=== PATIENT | male | born 1985 | race Caucasian/White ===

== ENCOUNTER 2024-04-28 23:46 | Emergency (ER) | payer BC ==
--- OUTSIDE RECORDS SUMMARY | 2024-04-28 23:48 | XMS REPORT | Continuity of Care Document ---
Author Name Unknown Address [address] [place] [address] [facility] Address [address] [place] [address] Care Team Providers Care Still Operator Brandy Name Role Phone MACI VEGA Primary Care Physician CHIVO Loo Attending Clinician Unavailable CARMELO OLEA Attending Clinician UnavailCarmelo Storm NP Attending Clinician [phone] Campaigns, Generic Provider Attending Clinician Unavailable Lilliam Ga MD Attending Clinician [phone] LILLIAM GA Attending Clinician UnavailLILLIAM Townsend Attending Clinician UnavailMACI Glover Attending Clinician Unavailab MACI Whittington Attending Clinician UnavailMaci Her MD Attending Clinician [phone], [facility] Attending Clinician Unavailable Doctor Unassigned, [place] Attending Clinician U CARMELO Greco Admitting Clinician MACI Peters Admitting Clinician Emeterio dela cruz Payers Payer Name Policy Type Policy Number Effective Date Expirati on Date Source [facility] [id number] 2023 00:00:00 Problems Condition Name Condition Details Condition Category Status Onset Date Resolution Date Last Treatment Date Treating Clinician Comments Source Chest pain, unspecifie d type Chest pain, unspecifie d type Disease Active 2023-05 00:00: 00 [facility] Allergies, Adverse Reactions, Alerts Allergy Name Allergy Type Status Severity Reaction(s) Onset Date Inactive Date Treating Clinician Comments Source NO KNOWN ALLERGIE S Drug Class Active [facility] Social History Social Habit Start Date Stop Date Quantity Comments Source History of tobacco use Cigarette Smoker [facility] Alcoholic beverage intake 2024-04-14 00:00:00 2024-04-14 00:00:00 Current drinker of alcohol (finding) [facility] History of Social function 2023-12-14 00:00:00 2023-12-14 00:00:00 [facility] Alcohol intake 2023-06-15 00:00:00 2023-06-15 00:00:00 Current drinker of alcohol (finding) [facility] Tobacco use and exposure 2023-03-15 00:00:00 2023-03-15 00:00:00 User of smokeless tobacco [facility] Alcohol Comment 2023-03-15 00:00:00 2023-03-15 00:00:00 occasionally [facility] Sex assigned at 1985 00:00:00 1985 00:00:00 [facility] Smoking Status Start Date Stop Date Source Smokes tobacco daily 2023-03-15 00:00:00 [facility] Medications Ordered Medication Name Filled Medication Name Start Date Stop Date Current Medication? Ordering Clinician Indication Dosage Frequency Signature (SIG) Comments Components Source aspirin tablet 325 mg 2023-05 16:45: 00 04-14 17:09 :00 No 325mg 325 mg, Oral, ONCE, 1 dose, On 04/14/24 at 1045, STAT [facility] triamcinolo ne acetonide (KENALOG) injection 40 mg 12-28 22:45: 00 12-28 21:31 :00 No [id number] 40mg 40 mg, Intramuscu lar, ONCE, 1 dose, On Lynn 12/29/23 at 1745, Routine [facility] Vital Signs Vital Name Observation Time Observation Value Comments S trae Systolic blood pressure 2024-04-14 21:00:00 144 mm[Hg] [facility] Diastolic blood pressure 2024-04-14 21:00:00 78 mm[Hg] [facility] Heart rate 2024-04-14 21:00:00 93 /min [facility] Respiratory rate 2024-04-14 21:00:00 17 /min [facility] Oxygen saturation in Arterial blood by Pulse oximetry 2024-04-14 21:00:00 98 /min [facility] Body temperature 2024-04-14 16:39:00 36.78 Karen [facility] Body height 2024-04-14 16:39:00 195.6 cm [facility] Body weight 2024-04-14 16:39:00 154.223 kg [facility] BMI 2024-04-14 16:39:00 40.32 kg/m2 [facility] Body height 2023-12-29 21:23:00 195.6 cm [facility] Body weight 2023-12-29 21:23:00 153.905 kg [facility] BMI 2023-12-29 21:23:00 40.24 kg/m2 [facility] Systolic blood pressure 2023-12-14 20:15:00 132 mm[Hg] [facility] Diastolic blood pressure 2023-12-14 20:15:00 69 mm[Hg] [facility] Heart rate 2023-12-14 20:15:00 85 /min [facility] Body temperature 2023-12-14 20:15:00 36.5 Karen [facility] Body height 2023-12-14 20:15:00 195.6 cm [facility] Body weight 2023-12-14 20:15:00 155.266 kg [facility] BMI 2023-12-14 20:15:00 40.59 kg/m2 [facility] Oxygen saturation in Arterial blood by Pulse oximetry 2023-12-14 20:15:00 97 /min [facility] Systolic blood pressure 2023-06-15 21:09:00 138 mm[Hg] [facility] Diastolic blood pressure 2023-06-15 21:09:00 80 mm[Hg] [facility] Heart rate 2023-06-15 21:09:00 88 /min [facility] Respiratory rate 2023-06-15 21:09:00 18 /min [facility] Body height 2023-06-15 21:09:00 195.6 cm [facility] Body weight 2023-06-15 21:09:00 154.858 kg [facility] BMI 2023-06-15 21:09:00 40.48 kg/m2 [facility] Oxygen saturation in Arterial blood by Pulse oximetry 2023-06-15 21:09:00 100 /min [facility] Systolic blood pressure 2023-03-15 21:14:00 129 mm[Hg] [facility] Diastolic blood pressure 2023-03-15 21:14:00 84 mm[Hg] [facility] Heart rate 2023-03-15 21:14:00 84 /min [facility] Body temperature 2023-03-15 21:14:00 36.28 Karen [facility] Respiratory rate 2023-03-15 21:14:00 18 /min [facility] Body height 2023-03-15 21:14:00 195.6 cm [facility] Body weight 2023-03-15 21:14:00 157.126 kg [facility] BMI 2023-03-15 21:14:00 41.08 kg/m2 [facility] Oxygen saturation in Arterial blood by Pulse oximetry 2023-03-15 21:14:00 98 /min [facility] Procedures Procedure Date / Time Performed Performing Clinicia n Source TROPONIN I 2024-04-14 19:38:00 [facility] 2024-04-14 17:02:28 [facility] LIPASE 2024-04-14 16:54:00 Carmelo Olea Un [facility] TROPONIN I 2024-04-14 16:54:00 Carmelo Olea Un [facility] COMP. METABOLIC PANEL ([id number]) 2024-04-14 16:54:00 Carmelo Olea [facility] CBC WITH DIFF 2024-04-14 16:54:00 Carmelo [facility] N-TERMINAL PRO-BNP 2024-04-14 16:54:00 Rodolfo Olea ril [facility] XR LUMBAR SPINE 3 VW 2023-06-15 22:04:24 Maci Vega [facility] ASSIGNMENT OF BENEFITS 2023-03-18 15:37:17 Docto r Unassigned, [place] [facility] Encounters Start Date/Time End Date/Time Encounter Type Admission Type Attending [facility] Care Facility Care Department Encounter ID Source 2024-05-03 15:20:00 2024-05-03 15:20:00 Outpatient R CHIVO [facility] [id number] [facility] 2024-04-14 10:41:00 2024-04-14 15:38:00 Emergency X CARMELO OLEA [facility] ERT [id number] [facility] 2024-04-14 10:41:00 2024-04-14 15:38:00 Emergency Carmelo Olea [facility] .840.114 350.1.13.10 4.2.7.2.686 [id number] [facility] 2024-01-20 00:00:00 2024-01-20 10:15:00 Letter (Out) Campaigns, Generic Provider Campaigns, Generic Provider [facility] [place] ..840.114 350.1.13.10 4.2.7.2.686 [id number] [facility] 2024-01-13 15:20:00 2024-01-13 15:20:00 Outpatient R CHIVO [facility] [id number] [facility] 2023-12-29 16:00:00 2023-12-29 16:43:07 Office Visit Lilliam Ga [facility] 1.2.840.114 350.1.13.10 4.2.7.2.686 [id number] [facility] 2023-12-29 16:00:00 2023-12-29 16:43:07 Outpatient R LILLIAM GA [facility] [id number] [facility] 2023-12-19 19:11:38 2023-12-19 23:59:00 Outpatient R OBI-KISHOREMACI Aranda OBI[facility]KISHORE , [facility] [id number] [facility] 2023-12-19 19:11:38 2023-12-19 23:59:00 Hospital Encounter Obi-Kishore , Maci [facility] 1.2840.114 350.1.13.10 4.2.7.2.686 [id number] [facility] 2023-12-15 00:00:00 2023-12-15 07:54:46 Telephone Obi-Kishore , [facility] BUILDING 1.2840.114 350.1.13.10 4.2.7.2.686 [id number] [facility] 2023-12-14 15:20:00 2023-12-14 15:33:19 Office Visit Obi-Kishore [facility] BUILDING 1.2.840.114 350.1.13.10 4.2.7.2.686 [id number] [facility] 2023-12-14 15:20:00 2023-12-14 15:33:19 Outpatient R OBI-KISHORE MACI OBI-KISHORE [facility] [id number] [facility] 2023-06-15 16:00:00 2023-06-15 23:59:00 Hospital Encounter Maci Vega [facility] 1.2840.114 350.1.13.10 4.2.7.2.686 [id number] [facility] 2023-06-15 15:20:00 2023-06-15 15:27:24 Outpatient R OBI-KISHOREMACI [facility] [id number] 2023-06-15 15:20:00 2023-06-15 15:27:24 [facility] 1.284.114 350.1.13.10 4.2.7.2.686 [id number] [facility] 2023-03-18 09:45:00 2023-03-18 10:00:00 [facility] Visit 2, Ad[facility] Shirin [facility] 1.2.840.114 350.1.13.10 4.2.7.2.686 [id number] [facility] 2023-03-18 09:45:00 2023-03-18 09:54:21 Outpatient R OBI-KISHORE MACI OBI-KISHORE [facility] [id number] [facility] 2023-03-18 00:00:00 2023-03-18 00:00:00 Orders Only Doctor Unassigned, [place] [facility] 1.284.114 350.1.13.10 4.2.7.2.686 [id number] [facility] 2023-03-15 15:00:00 2023-03-15 16:08:54 Office Visit Maci Vega [facility] 1.2.840.114 350.1.13.10 4.2.7.2.686 [id number] [facility] 2023-03-15 15:00:00 2023-03-15 16:08:54 Outpatient R MACI VEGA [facility] [id number] [facility] Results Test Description Test Time Test Comments Results Result Co mments Source [facility] 19:09:44* Test Item Value Reference Range Interpretation Comme nts LIPASE (test code = 4013714866) 118 U/L 0-220 Lab Interpretation (test cod e = 81515-9) Normal [facility] 1 [id number] 18:01:54EXAM: XR CHEST 1 VW HISTORY: 39 years-old Male; CHEST PAIN COMPARISON: None FINDINGS: Lungs: The lung volumes are mildly underinflated. No focal opacities arepresent. No pleural abnormalities are detected. Heart/Mediastinum: The cardiomediastinal silhouette appears normal. Bones and soft tissues: No acute osseous findings are detected.[facility] [id number] 17:29:40* Test Item Value Reference Range Interpretation Comme nts TROPONIN I (test code = 2922073918) 0.001 ng/mL <=0.034 RADHA (test code = RADHA) Reference (Normal) Range (defined by the 99th percentile reference limit): <= 0.034 ng/mL Note: Cardiac troponin begins to rise 3-4 hours after the onset of ischemia. Repeat in 4-6 hours if the sample was drawn within 3-4 hours of the onset of the symptom and found normal. Diagnosis of myocardial injury is made with acute changes in cTn concentrations with at least one serial sample above the 99th percentile upper reference limit (URL), taken together with the patient's clinical presentation. Biotin has been reported to cause a negative bias, interpret results relative to patient's use of biotin. Lab Interpretation (test code = 72130-5) Normal [facility] [id number] 17:27:18* Test Item Value Reference Range Interpretation Comme nts NT-proBNP (test code = 68346-0) 56 pg/mL <=125 Lab Interpretation (test cod e = 41935-3) Normal [facility] METABOLIC PANEL ([id number])2024-04-14 17:17:56* Test Item Value Reference Range Interpretation Comme nts NA (test code = 8173209582) 140 mmol/L 135-145 K (test code = 8025826045) 3.5 mmol/L 3.5-5.0 CL (test code = 3774161656) 104 mmol/L 98-108 CO2 TOTAL (test code = 6673606580) 26 mmol/L 23-31 AGAP (test code = 7654311281) 10 2-16 BUN (test code = 9373946665) 11 mg/dL 7-23 GLUCOSE (test code = 2583444438) 104 mg/dL 70-110 CREATININE (test code = 2160-0) 0.68 mg/dL 0.60-1.25 TOTAL BILI (test code = 7469833849) 0.4 mg/dL 0.1-1.1 CALCIUM (test code = 8573887298) 9.6 mg/dL 8.6-10.6 T PROTEIN (test code = 0174156984) 8.1 g/dL 6.3-8.2 ALBUMIN (test code = 0458551869) 4.9 g/dL 3.5-5.0 ALK PHOS (test code = 5418518386) 45 U/L 34-122 ALTv (test code = 1742-6) 47 U/L 5-50 AST(SGOT) (test code = 9805333696) 30 U/L 13-40 eGFR (test code = 36071-6) 120.5 mL/min/1.73m2 CKD-EPI eGFR (20 21). Assuming creatinine has been stable day-to-day for at least three months, the eGFR indicates Category G1 (>= 90 mL/min/1.73 m2) [facility] WITH [id number] 17:08:36* Test Item Value Reference Range Interpretation Comme nts WBC (test code = 6690-2) 8.51 4.20-10.70 RBC (test code = 789-8) 5.05 4.26-5.52 HGB (test code = 718-7) 15.8 g/dL 12.2-16.4 HCT (test code = 4544-3) 46.5 % 38.4-49.3 MCV (test code = 787-2) 92.1 fL 81.7-95.6 MCH (test code = 785-6) 31.3 pg 26.1-32.7 MCHC (test code = 786-4) 34.0 g/dL 31.2-35.0 RDW-SD (test code = 63642-7) 40.8 fL 38.5-51.6 RDW-CV (test code = 788-0) 12.0 % 12.1-15.4 L PLT (test code = 777-3) 222 150-328 MPV (test code = 48398-7) 11.4 fL 9.8-13.0 NRBC/100 WBC (test code = 8164263897) 0.0 0.0-10.0 NRBC x10^3 (test code = 3914412514) See_Comment [Automated messa ge] The system which generated this result transmitted reference range: 10*3/?L. The reference range was not used to interpret this result as normal/abnormal. GRAN MAT (NEUT) % (test code = 770-8) 59.1 % IMM GRAN % (test code = 0537816215) 0.50 % LYMPH % (test code = 736-9) 30.6 % MONO % (test code = 5905-5) 8.5 % EOS % (test code = 713-8) 0.9 % BASO % (test code = 706-2) 0.4 % GRAN MAT x10^3(ANC) (test code = 0887356494) 5.04 10*3/uL 1.99-6.95 IMM GRAN x10^3 (test code = 9032927350) 0.04 10*3/uL 0.00-0.06 LYMPH x10^3 (test code = 731-0) 2.60 10*3/uL 1.09-3.23 MONO x10^3 (test code = 742-7) 0.72 10*3/uL 0.36-1.02 EOS x10^3 (test code = 711-2) 0.08 10*3/uL 0.06-0.53 BASO x10^3 (test code = 704-7) 0.03 10*3/uL 0.01-0.09 Lab Interpretation (test code = 87183-6) Abnormal [facility] 3 [id number] 22:21:49 HISTORY: ?Low back pain. FINDINGS: AP, lateral and spot views of the lumbar spines showed 5 lumbarvertebrae with no acute compression fracture or dislocation. Small sizelast ribs noted. L3-L4: Disc space is narrowed by approximately 20%. Mild endplate sclerosisand osteophytes along the vertebral margins with minimal retrolisthesis ofL3 over L4 causing mild spinal canal encroachment. L4-L5: Disc space is minimally narrowed with mild endplate sclerosis,minimal retrolisthesis of L4 over L5 and small osteophytes along thevertebral margins causing mild spinal canal encroachment. L5-S1: Grade 1 retr olisthesis of L5 over S1 is suspected with minimaldegenerative changes in the vertebral margins without significant narrowingof the disc space. Sacroiliac joints appear normal. No calcified kidney stones detected. CONCLUSIONS: No fracture. Mild changes of disc disease at L3-L4, L4-L5.[facility]
[2024-04-29] MEDS ORDERED: CYCLOBENZAPRINE 10 MG TAB ONE (00:16)
--- NOTE | 2024-04-29 01:41 | RAD REPORT ---
EXAM DESCRIPTION: CT of the thoracic spine without contrast. CLINICAL HISTORY: PAIN COMPARISON: None available TECHNIQUE: Axial CT of the thoracic spine obtained without contrast. This exam was performed accordin g to our departmental dose-optimization program, which includes automated exposure control, adjustment of the mA and/or kV according to patient size and/or use of iterative reconstruction techn ique. FINDINGS: Alignment of the thoracic spine is maintained without evidence of subluxation. No fracture identifi ed. Vertebral body height preserved. Prevertebral soft tissues are unremarkable. Multilevel endplate spondylosis and facet arthropathy throughout the thoracic spine. IMPRESSION: 1. No acute fracture or subluxation of the thoracic spine. Electronically signed by: Kolby Perez DO 04/29/2024 01:36 AM [facility] 4ZDM Due to temporary technical issues with the PACS/ThisLife reporting system, reports are being carmen d by the in-house radiologist without review as a courtesy to ensure prompt reporting the interpreting radiologist is fully responsible for the content of the report. Transcribed Date/Time: 04/29/2024 1:41 AM
--- NOTE | 2024-04-29 02:20 | RAD REPORT ---
EXAM DESCRIPTION: CT LUMBAR SPINE WITHOUT IV CONTRAST 04/29/2024 2:09 AM FRONT END MANAGER CLINICAL HISTORY: 39 years, Male, Lower back pain. COMPARISON: None. TECHNIQUE: Multiple transaxial tomograms of the lumbar spine were performed utilizing 2 mm slight thi ckness at 2 mm interval reconstruction without the administration of IV contrast. Subsequent 2-D multiplanar reformats in the coronal and sagittal plane were performed and reviewed. An individualized dose optimization technique, Automated Exposure Control, was utilized for the perfo rmed procedure. FINDINGS: There is normal mineralization of the osseous structures. The vertebral body heights are maintained. There is no evidence for fracture and/or subluxation. The lumbar lordosis is maintained, without significant spondylolisthesis. There is no epidural fluid collection/hematoma. The prevertebral and paraspinal soft tissues are unremarkable. L1-L2: There is no significant disc herniation, spinal canal stenosis, or neuroforaminal stenosis. L2-L3: There is no significant disc herniation, spinal canal stenosis, or neuroforaminal stenosis. L3-L4: There is no significant disc herniation, spinal canal stenosis, or neuroforaminal stenosis. L4-L5: There is no significant disc herniation, spinal canal stenosis, or neuroforaminal stenosis. L5-S1: There is no significant disc herniation, spinal canal stenosis, or neuroforaminal stenosis. IMPRESSION: Unremarkable CT scan of the lumbar spine without contrast. No evidence of fracture or subluxation. Electronically signed by: Andrew Suarez MD 04/29/2024 02:17 AM FRONT END MANAGER Due to temporary technical issues with the PACS/[employer] reporting system, reports are being carmen d by the in-house radiologist without review as a courtesy to ensure prompt reporting the interpreting radiologist is fully responsible for the content of the report. Transcribed Date/Time: 04/29/2024 2:20 AM
--- NOTE | 2024-04-29 03:17 | ER ---
Nurse's Notes [facility] Name: Asad Callejas Age: 39 yrs Sex: Male : 1985 Arrival Date: 04/28/2024 Time: 23:46 Bed 17 Private MD: Diagnosis: Muscle spasm of back;Low back pain Presentation: 04/28 23:50 Chief complaint: EMS states: toned out for lift assist. Working on building a swingset me1 today and he bent foreward and felt a pop in his mid to lower back then started hurting. About 7 pm patient laid down on the floor in an attempt to stretch his back out and ended up calling EMS for lift assist at 10 pm because he couldn't get up. Once EMS got him up he agreed to come to ER due to pain 02/15. 20g to LAC, EMS gave toradol 30 mg IV. Coronavirus screen: Vaccine status: Patient reports being unvaccinated. Ebola Screen: No symptoms or risks identified at this time. Initial Sepsis Screen: Does the patient meet any 2 criteria? HR > 90 bpm. No. Patient's initial sepsis screen is negative. Does the patient have a suspected source of infection? No. Patient's initial sepsis screen is negative. Risk Assessment: Do you want to hurt yourself or someone else? Patient reports no desire to harm self or others. Onset of symptoms was April 28, 2024 at 16:00. 23:50 Method Of Arrival: EMS: [facility] [place] 23:50 Acuity: JUAN 3 [facility] [place] 23:50 Care prior to arrival: Medication(s) given: ketorolac 30 mg IV initiated. 20 GA, in the wy1 left antecubital area. Triage Assessment: 23:55 General: Appears uncomfortable, well groomed, well developed, well nourished, Behavior wy1 is calm, cooperative, appropriate for age. Pain: Complains of pain in lumbar area, left low back, left mid back, right mid back and right low back Pain does not radiate. Pain currently is 7 out of 10 on a pain scale. Quality of pain is described as sharp, squeezing, Pain began suddenly, Is continuous. EENT: No signs and/or symptoms were reported regarding the EENT system. Neuro: Level of Consciousness is awake, alert, obeys commands, Oriented to person, place, time, situation, Appropriate for age. Cardiovascular: Patient's skin is warm and dry. Respiratory: Airway is patent Trachea midline Respiratory effort is even, unlabored, Respiratory pattern is regular, symmetrical. GI: No signs and/or symptoms were reported involving the gastrointestinal system. : No signs and/or symptoms were reported regarding the genitourinary system. Derm: Skin is intact, is healthy with good turgor, Skin is pink, warm \T\ dry. Musculoskeletal: Circulation, motion, and sensation intact. Range of motion: intact in all extremities, Reports pain in back. Injury Description: bent forward and felt a pop. Historical: - Allergies: 23:55 No Known Allergies; me1 - Home Meds: 23:55 None [Active]; me1 - PMHx: 23:55 Bronchitis; Pneumonia; me1 - PSHx: 23:55 None; me1 - Immunization history:: Adult Immunizations up to date. - Infectious Disease History:: Denies. - Social history:: Smoking status: Patient reports the use of cigarette tobacco products, smokes two packs cigarettes per day. Screenin/22 02:15 [facility] ED Fall Risk Assessment (Adult) History of falling in the last 3 months, kj2 including since admission No falls in past 3 months (0 pts) Confusion or Disorientation No (0 pts) Intoxicated or Sedated No (0 pts) Impaired Gait No (0 pts) Mobility Assist Device Used No (0 pt) Altered Elimination No (0 pt) Score/Fall Risk Level 0 - 2 = Low Risk Maintained a safe environment, Hourly rounding (assess needs \T\ fall precautionary measures) done. Abuse screen: Denies threats or abuse. Denies injuries from another. Nutritional screening: No deficits noted. Tuberculosis screening: No symptoms or risk factors identified. Assessment: 02:15 Reassessment: Patient appears in no apparent distress at this time. Patient and/or kj2 family updated on plan of care and expected duration. Pain level reassessed. Patient is alert, oriented x 3, equal unlabored respirations, skin warm/dry/pink. 02:15 General: Appears uncomfortable, Behavior is calm, cooperative. Pain: Complains of pain kj2 in back and right low back and right mid back. Neuro: Level of Consciousness is awake, alert, obeys commands, Oriented to person, place, time, situation. Cardiovascular: Patient's skin is warm and dry. Respiratory: Airway is patent Respiratory effort is unlabored. GI: No signs and/or symptoms were reported involving the gastrointestinal system. : No signs and/or symptoms were reported regarding the genitourinary system. 03:15 Reassessment: Patient appears in no apparent distress at this time. Patient and/or kj2 family updated on plan of care and expected duration. Pain level reassessed. Patient is alert, oriented x 3, equal unlabored respirations, skin warm/dry/pink. 03:50 Reassessment: Patient appears in no apparent distress at this time. Patient and/or kj2 family updated on plan of care and expected duration. Pain level reassessed. Patient is alert, oriented x 3, equal unlabored respirations, skin warm/dry/pink. Vital Signs: 04/28 23:50 BP 144 / 60; Pulse 103; Resp 17; Temp 98.2; Pulse Ox 98% ; Weight 154.22 kg; Height 6 me1 ft. 5 in. ; Pain 7/10; 04/29 01:00 BP 140 / 55; Pulse 91; Resp 18; Pulse Ox 98% ; cp4 02:15 BP 136 / 58; Pulse 90; Resp 20; Pulse Ox 100% on R/A; kj2 03:15 BP 134 / 60; Pulse 88; Resp 20; Pulse Ox 100% on R/A; kj2 03:52 BP 135 / 62; Pulse 84; Resp 18; Temp 98; Pulse Ox 100% on R/A; kj2 04/28 23:50 Body Mass Index 40.32 (154.22 kg, 195.58 cm) wy1 04/28 23:50 Pain Scale: Adult [facility] [place] ED Course: 04/28 23:46 Patient arrived in ED. me1 23:47 Reuben Anderson MD is Attending Physician. bo1 23:50 Naima Márquez, RICK is Primary Nurse. me1 23:54 Triage completed. me1 23:55 Arm band placed on Patient placed in an exam room. me1 04/29 00:51 CT Lumbar Spine Wo Con In Process Unspecified. EDMS 00:52 CT Thoracic Spine Wo Cont In Process Unspecified. EDMS 02:15 Bed in low position. Call light in reach. kj2 02:15 Provided Education on: fall precautions, fall precautions. kj2 02:15 Report received from RICK Cardoza. kj2 03:54 No provider procedures requiring assistance completed. kj2 03:55 IV discontinued, intact, bleeding controlled, No redness/swelling at site. Pressure kj2 dressing applied. Administered Medications: 00:17 Drug: Cyclobenzaprine PO 10 mg PO once Route: PO; cp4 03:52 Follow up: Response: No adverse reaction kj2 Medication: 03:54 VIS not applicable for this client. kj2 Outcome: 03:17 Discharge ordered by . ermias 03:55 Discharged to home ambulatory, kj2 03:55 Condition: stable 03:55 Discharge instructions given to patient, Instructed on discharge instructions, follow up and referral plans. medication usage, Demonstrated understanding of instructions, follow-up care, medications, Prescriptions given X 1, 03:58 Patient left the ED. kj2 Signatures: Dispatcher [employer] EDMS Naima Márquez, RN RN me1 Tierra Riggins cp4 Reuben Anderson MD MD bo1 Marisa Fry RN RN kj2
--- NOTE | 2024-04-29 03:17 | EDPHYS ---
Physician Documentation [facility] Name: Asad Callejas Age: 39 yrs Sex: Male : 1985 Arrival Date: 04/28/2024 Time: 23:46 Bed 17 Private MD: ED Physician Reuben Anderson HPI: 04/28 23:56 This 39 yrs old Male presents to ER via EMS with complaints of Back Pain. bo1 23:56 The patient presents with pain that is acute, and an injury, Sudden today. The symptoms bo1 are located in the low back, lumbar area. Onset: The symptoms/episode began/occurred suddenly. "knees buckled after I felt a pop". Associated signs and symptoms: Pertinent positives: weakness, In both knees. The problem was sustained when bending over, Pt was putting together a swing set \\T\\ 4:30pm then this evening he could not get up from laying on the floor for 3 hours. Modifying factors: the patient symptoms are aggravated by any movement. Pt was transported by EMS and given Toradol enroute. Historical: - Allergies: 23:55 No Known Allergies; me1 - Home Meds: 23:55 None [Active]; me1 - PMHx: 23:55 Bronchitis; Pneumonia; me1 - PSHx: 23:55 None; me1 - Immunization history:: Adult Immunizations up to date. - Infectious Disease History:: Denies. - Social history:: Smoking status: Patient reports the use of cigarette tobacco products, smokes two packs cigarettes per day. ROS: 04/29 03:09 Constitutional: Negative for fever, chills, and weight loss bo1 Neck: Negative for injury or acute deformity, pain with movement, pain at rest, Cardiovascular: Negative for chest pain, Respiratory: Negative for shortness of breath, Abdomen/GI: Negative for abdominal pain, Back: Positive for pain at rest, pain with movement, of the lumbar area, Exam: 03:12 Constitutional: This is a well developed, well nourished patient who is awake, alert, bo1 and in mild acute distress. 03:12 Constitutional: The patient appears alert, awake, in obvious distress, mildly distressed, uncomfortable, 03:12 Head/face: Exam is negative for acute changes, 03:12 Neck: Exam negative for acute changes, External neck: no acute changes, swelling, is not appreciated, C-spine: no acute changes, 03:12 Back: pain, that is moderate, ROM is decreased, Straight leg raises: pain bilaterally, Muscle spasm to both sides in the lower thoracic and upper lumbar area, 03:12 Musculoskeletal/extremity: Extremities: all appear grossly normal, with no appreciated pain with palpation, DVT Exam: no pain, no swelling, no tenderness, 03:12 Skin: no rash present. 03:12 Neuro: Orientation: is normal, Mentation: is normal, Deep tendon reflexes are 2+ (normal) in the right patellar, right Achilles, left patellar and left Achilles, Vital Signs: 04/28 23:50 BP 144 / 60; Pulse 103; Resp 17; Temp 98.2; Pulse Ox 98% ; Weight 154.22 kg; Height 6 me1 ft. 5 in. ; Pain 7/10; 04/29 01:00 BP 140 / 55; Pulse 91; Resp 18; Pulse Ox 98% ; cp4 02:15 BP 136 / 58; Pulse 90; Resp 20; Pulse Ox 100% on R/A; kj2 03:15 BP 134 / 60; Pulse 88; Resp 20; Pulse Ox 100% on R/A; kj2 03:52 BP 135 / 62; Pulse 84; Resp 18; Temp 98; Pulse Ox 100% on R/A; kj2 04/28 23:50 Body Mass Index 40.32 (154.22 kg, 195.58 cm) me1 04/28 23:50 Pain Scale: Adult me1 MDM: 04/28 23:47 Medical Screening Exam initiated bo1 04/29 03:15 Differential diagnosis: Ligament Injury ruptured disc, sprain, Muscle spasm. bo1 03:15 Data reviewed: vital signs, radiologic studies, CT scan. bo1 03:15 ED course: Pt is improved and CT is negative. Reassurance provided and plan for rest bo1 and Rx of meds. 04/29 00:00 Order name: CT Lumbar Spine Wo Con bo1 04/29 00:00 Order name: CT Thoracic Spine Wo Cont bo1 Administered Medications: 00:17 Drug: Cyclobenzaprine PO 10 mg PO once Route: PO; cp4 03:52 Follow up: Response: No adverse reaction kj2 Disposition Summary: 04/29/24 03:17 Discharge Ordered Notes: Location: Home bo1 Problem: new bo1 Symptoms: have improved bo1 Condition: Stable bo1 Diagnosis - Muscle spasm of back bo1 - Low back pain bo1 Followup: bo1 - With: Private Physician - When: Upon discharge from the Emergency Department - Reason: Recheck today's complaints, Continuance of care Discharge Instructions: - Discharge Summary Sheet bo1 - Acute Back Pain, Adult bo1 Forms: - Medication Reconciliation Form bo1 - Antibiotic Education bo1 - Prescription Opioid Use bo1 - Patient Portal Instructions bo1 - Leadership Thank You Letter bo1 Prescriptions: - ketorolac 10 mg Oral tablet - take 1 tablet ORAL route every 6 hours for 4 days as needed for pain; 20 bo1 tablet; Refills: 0, Product Selection Permitted - Cyclobenzaprine 10 mg Oral Tablet - take 1 tablet ORAL route every 8 hours As needed; 30 tablet; Refills: 0, bo1 Product Selection Permitted Signatures: Dispatcher [employer] Naima Laureano RN RN me1 Tierra Riggins cp4 Reuben Anderson MD MD bo1 Marisa Fry RN kj2
[2024-04-29 04:06] VITALS: O2SAT 100
[2024-04-29 04:08] VITALS: BP 135/62; TEMP 98
== END 2024-04-29 03:58 | disposition home or self-care (01) ==
LOC: ER 23:46
DX: M62.830 Muscle spasm of back (principal); F17.210 Nicotine dependence, cigarettes, uncomplicated
CPT/HCPCS: 72128; 72131; 99284